=== PATIENT | male | born 1975 | race Caucasian/White ===

== ENCOUNTER 2017-09-24 13:17 | Emergency (ER) | payer SELFPAY ==
[~2017-09-24] VITALS: Ht 172.7 cm; Wt 77.1 kg
[2017-09-24 13:22] VITALS: BP 149/93; Ht 172.7 cm; Wt 77.1 kg
== END 2017-09-24 16:27 | disposition left against medical advice (07) ==
LOC: ED 13:17
DX: Z53.21 Procedure and treatment not carried out due to patient leaving prior to being seen by health care provider (principal)

== ENCOUNTER 2017-12-24 20:15 | Inpatient (IN) | payer MEDICAID ==
[~2017-12-24] VITALS: Ht 170.2 cm; Wt 78.5 kg
[2017-12-24 21:39] LABS: CALCIUM 8.6 mg/dL (8.5-10.1); CARBON DIOXIDE 26.2 mmol/L (21-32); CHLORIDE SERUM 106 mmol/L (98-107); CREATININE SERUM 0.9 mg/dL (0.7-1.3); GFR1 > 60 mL/min; GLUCOSE SERUM 145 mg/dL (74-106); POTASSIUM SERUM 3.6 mmol/L (3.5-5.1); SODIUM SERUM 142 mmol/L (136-145)
[2017-12-24 21:43] LABS: ALBUMIN 3.9 g/dL (3.4-5.0); ALKALINE PHOSPHATASE 59 U/L (46-116); ALT/SGPT 30 U/L (16-63); AST/SGOT 18 U/L (15-37); BILIRUBIN TOTAL 1.07 mg/dL (0.20-1.00); LIPASE 134 IU/L (73-393); TOTAL PROTEIN, SERUM 7.1 g/dL (6.4-8.2)
[2017-12-24 21:56] LABS: BASOPHIL % 0.1 % (0-2); PLATELET COUNT 289 x10^3mcL (130-400); RED CELL DISTRIBUTION WIDTH 13.4 % (11.5-14.5)
[2017-12-24 22:35] LABS: CHOLESTEROL/HDL RATIO 3.3; MAGNESIUM 1.9 mg/dL (1.8-2.4)
[2017-12-24 22:44] LABS: T3 TOTAL 0.72 ng/mL
[2017-12-24 22:52] LABS: FREE THYROXINE INDEX 1.7 ug/dL (1.4-4.5); T4(THYROXINE) 4.5 ug/dL (4.7-13.3)
[2017-12-24 23:18] VITALS: BP 142/88
[2017-12-25 04:57] VITALS: BP 106/63
[2017-12-25 06:09] LABS: PLATELET COUNT 259 x10^3mcL (130-400); RED CELL DISTRIBUTION WIDTH 13.2 % (11.5-14.5)
[2017-12-25 06:13] LABS: BASOPHIL % 0 % (0-2)
[2017-12-25 06:32] LABS: CALCIUM 8.3 mg/dL (8.5-10.1); CARBON DIOXIDE 25.5 mmol/L (21-32); CHLORIDE SERUM 106 mmol/L (98-107); CREATININE SERUM 0.9 mg/dL (0.7-1.3); GFR1 > 60 mL/min; GLUCOSE SERUM 132 mg/dL (74-106); POTASSIUM SERUM 4.5 mmol/L (3.5-5.1); SODIUM SERUM 138 mmol/L (136-145)
[2017-12-25 08:41] VITALS: Ht 170.2 cm; Wt 78.5 kg
[2017-12-25 08:44] LABS: microscopic required? NO
[2017-12-25 08:46] LABS: UA SPECIFIC GRAVITY 1.025 (1.005-1.035); urine erythrocyte NEGATIVE (NEGATIVE)
[2017-12-25 08:55] LABS: AMPHETAMINE QUAL UR NONE DETECTED (NEG <=1000)
[2017-12-25 09:42] VITALS: BP 121/76
[2017-12-25 13:07] VITALS: BP 114/80
[2017-12-25 17:45] VITALS: BP 132/83
[2017-12-25 19:51] VITALS: BP 112/73
[2017-12-26 05:28] VITALS: BP 127/74
[2017-12-26 06:50] LABS: BASOPHIL % 0.1 % (0-2); PLATELET COUNT 200 x10^3mcL (130-400); RED CELL DISTRIBUTION WIDTH 13.3 % (11.5-14.5)
[2017-12-26 07:02] LABS: CALCIUM 8.5 mg/dL (8.5-10.1); CARBON DIOXIDE 26.2 mmol/L (21-32); CHLORIDE SERUM 106 mmol/L (98-107); CREATININE SERUM 0.9 mg/dL (0.7-1.3); GFR1 > 60 mL/min; GLUCOSE SERUM 106 mg/dL (74-106); POTASSIUM SERUM 4.7 mmol/L (3.5-5.1); SODIUM SERUM 140 mmol/L (136-145)
[2017-12-26 08:40] VITALS: BP 122/75
[2017-12-26 13:01] VITALS: BP 122/83
[2017-12-26] MEDS ORDERED: BD LACTINEX1.4 MG PO (13:43)
[2017-12-26] MEDS ORDERED: CIPRO500 MG PO (13:43)
[2017-12-26] MEDS ORDERED: MOT800 PO (13:52)
[2017-12-26 14:29] VITALS: BP 122/83
== END 2017-12-26 16:10 | disposition home or self-care (01) | DRG 225 ==
LOC: ED 20:15 → DU 22:00
PROVIDERS: Emergency Medicine; Family Medicine Sports Medicine; Surgery
PROC: 0DTJ4ZZ Resection of Appendix, Percutaneous Endoscopic Approach (ICD-10-PCS; principal; 2017-12-25 13:00)
DX: K35.80 Unspecified acute appendicitis (principal); E83.39 Other disorders of phosphorus metabolism; K57.30 Diverticulosis of large intestine without perforation or abscess without bleeding; E78.5 Hyperlipidemia, unspecified; E86.0 Dehydration
CPT/HCPCS: 82962; 84439; 94150; J0330; J1885; J2250; J2270; J2405; J2543; J2704; J2710; J3010; J3490; J7030; J7120; Q0092